=== PATIENT | male | born 1995 | race Caucasian/White ===

== ENCOUNTER 2017-02-02 00:47 | Emergency (ER) | payer BC, OTHER ==
[2017-02-02] MEDS ORDERED: NS 0.9% 1000 ML* 2,000 ML IV ONE (01:19)
[2017-02-02] MEDS ORDERED: Ketorolac INJ* 30 MG/ML 1 ML VIAL IV ONE (01:19)
[2017-02-02] MEDS ORDERED: Ondansetron INJ* 2 MG/ML VIAL IV ONE (01:19)
[2017-02-02] MEDS ORDERED: Dexamethasone IV* 4 MG/ML 1 ML (4 MG) IV SLOW PU ONE (01:56)
[2017-02-02] MEDS ORDERED: Clindamycin 900 MG IVPREMIX(* 900 MG/50 ML SDV IV ONE (01:59)
[2017-02-02 02:18] LABS: Hematocrit 42 % (42-52); Hemoglobin 14.4 g/dl (14.0-18.0); Mean Corpuscular HGB Conc 34 g/dl (31-36); Mean Corpuscular Hemoglobin 30 pg (27-31); Mean Corpuscular Volume 89 fL (80-94); Mean Platelet Volume 8 um3 (7.4-10.4); Red Blood Count 4.73 10^6/ul (4.0-5.4); Red Cell Distribution Width 13 % (10.5-15); White Blood Count 12.6 10^3/ul (3.5-10.8)
[2017-02-02 02:29] LABS: Add Diff/Slide Review? Slide Review Added
[2017-02-02 02:37] LABS: Albumin 3.8 g/dL (3.2-5.2); BUN/Creatinine Ratio 12.9 (8-20); C Reactive Protein 89.64 mg/L (< 5.00); EGFR Non-African American 112.7 (>60); Mono Internal Control QC Line Present; Potassium 3.8 mmol/L (3.5-5.0); Total Bilirubin 0.4 mg/dL (0.2-1.0); Total Protein 6.8 g/dL (6.4-8.9)
[2017-02-02 02:38] LABS: Manual Entry Verification LOR0008
[2017-02-02 06:31] VITALS: BP 143/87
== END 2017-02-02 04:08 | disposition home or self-care (01) ==
LOC: ED 00:47
DX: J36 Peritonsillar abscess (principal); J02.9 Acute pharyngitis, unspecified
CPT/HCPCS: 36415; 80053; 85025; 86140; 86308; 96374; 96375; 99283; J1100; J1885; J2405